=== PATIENT | female | born 1945 | race Caucasian/White ===

== ENCOUNTER → 2016-09-22 | Outpatient (CLI) | payer MEDICARE ==
--- NOTE | 2016-09-22 16:01 | BD ---
EXAMINATION TYPE: MG DEXA axial skeleton. DATE OF EXAM: 09/22/2016 COMPARISON: 09.18.2014 CLINICAL HISTORY: Z78.0 ASYMPTOMATIC MENOPAUSE Height: 63 Weight: 152 FRAX RISK QUESTIONS: Alcohol (3 or more units per day): NO Family History (Parent hip fracture): NO Glucocorticoids (More than 3mos): NO (Ex: prednisone, prednisolone, methylprednisolone, dexamethasone, and hydrocortisone). History of Fracture in Adulthood: NO Secondary Osteoporosis: NO 1. Type 1 Diabetes: NO 2. Hyperthyroidism: NO 3. Menopause before 45: NO 4. Malnutrition: NO 5. Chronic liver disease: NO Rheumatoid Arthritis: NO Current Tobacco Use: NO RISK FACTORS HISTORY OF: Family History of Osteoporosis: NO Active: YES Diet low in dairy products/other sources of calcium: NO Postmenopausal woman: 54 YRS OLD Take estrogen and/or progesterone medications: FOR 8 MO IN PAST, NONE NOW How lon MOS FOR HRT, 9 YRS FOR BCPS Hyperparathyroidism: NO Adrenal Insufficiency: NO MEDICATIONS: Osteoporosis Medications: ACTENOL 1 TIME MONTHLY, PRIOR WEEKLY, AND PROLIA IN PAST ALSO How Lon-7 YRS Additional Medications: BP MEDS, CALCIUM WITH VIT D, LIPITOR, Additional History: HYPERTENSION EXAM MEASUREMENTS: Bone mineral densitometry was performed using the [employer] System. Bone mineral density as measured about the Lumbar spine is: ----- L1-L4(G/cm2): 1.040 T Score Values are as follows: ----- L1: -2.1 ----- L2: -1.0 ----- L3: -1.5 ----- L4: -0.3 ----- L1-L4: -1.2 Bone mineral density has: Increased 10.0% since study of: 09.18.2014 Bone mineral density about the R hip (g/cm2): 0.970 Bone mineral density about the L hip (g/cm2): 0.927 T Score values are as follows: -----R Neck: -1.4 -----L Neck: -1.4 -----R Total: -0.3 -----L Total: -0.6 Bone mineral density has: Increased 0.5% since study of: 09.18.2014 FRAX %'S: THERE IS A 9.8% CHANCE OF A MAJOR OSTEOPOROTIC FX AND A 1.4% CHANCE OF A HIP FX.....ME OBABILITY IN 10 YRS/TIME IMPRESSION: Osteopenia (T Score between -2.5 and -1 as noted by T score values There is slightly increased risk of fracture and the patient may be considered for treatment. Re-Screen 2-5 years. Bone density is improved 10% within the lumbar spine compared to 09/18/2014. Bone density has improved 0.5% within the bilateral hips from 2015 NOTE: T-SCORE=SD OF THE YOUNG ADULT MEAN.
--- NOTE | 2016-09-25 12:59 | MM ---
Reason for exam: screening (asymptomatic). Last mammogram was performed 1 year ago. History: Patient is postmenopausal. Benign cyst aspiration of the right breast. Took hormonal contraceptives for 9 years. Took estrogen for 8 months. Took progesterone for 8 months. Physical Findings: A clinical breast exam by your physician is recommended on an annual basis and results should be correlated with mammographic findings. MG 3D Screening Mammo W/Cad Bilateral CC and MLO view(s) were taken. Prior study comparison: September 22, 2015, bilateral MG 3d screening mammo w/cad. September 21, 2014, left breast MG work up mamm w CAD LT. The breast tissue is heterogeneously dense. This may lower the sensitivity of mammography. Finding: There are typically benign round, diffuse/scattered and grouped calcifications in both breasts. There is a chronic nodularity in the right breast outer aspect unchanged from 2014. There is no dominant lesion. ASSESSMENT: Benign, BI-RAD 2 RECOMMENDATION: Routine screening mammogram of both breasts in 1 year.
== END | disposition home or self-care (01) ==
LOC: RADMAMWWP 08:13
PROVIDERS: ATTEND Family Medicine
DX: Z12.31 Encounter for screening mammogram for malignant neoplasm of breast (principal); M85.88 Other specified disorders of bone density and structure, other site; Z78.0 Asymptomatic menopausal state
CPT/HCPCS: 77080; 77063; G0202

== ENCOUNTER → 2017-10-08 | Outpatient (CLI) | payer MEDICARE ==
--- NOTE | 2017-10-10 13:43 | MM ---
Reason for exam: screening (asymptomatic). Last mammogram was performed 1 year and 1 month ago. History: Patient is postmenopausal. Benign cyst aspiration of the right breast. Took hormonal contraceptives for 9 years. Took estrogen for 8 months. Took progesterone for 8 months. Physical Findings: A clinical breast exam by your physician is recommended on an annual basis and results should be correlated with mammographic findings. MG 3D Screening Mammo W/Cad Bilateral CC and MLO view(s) were taken. Prior study comparison: September 22, 2016, bilateral MG 3d screening mammo w/cad. September 22, 2015, bilateral MG 3d screening mammo w/cad. September 18, 2014, bilateral MG screening mammo w CAD. September 11, 2013, bilateral MG screening mammo w CAD. The breast tissue is heterogeneously dense. This may lower the sensitivity of mammography. Nodular asymmetry persists on 3D images anterior left MLO view just below the retroareolar plane. ASSESSMENT: Incomplete: need additional imaging evaluation, BI-RAD 0 RECOMMENDATION: Special view mammogram of the left breast. If lesion persists on supplemental views, image directed ultrasound is recommended. [facility] will attempt to contact patient to return for supplemental views and ultrasound if indicated.
== END | disposition home or self-care (01) ==
LOC: RADMAMWWP 10:20
PROVIDERS: ATTEND Family Medicine
DX: Z12.31 Encounter for screening mammogram for malignant neoplasm of breast (principal)
CPT/HCPCS: 77063; 77067

== ENCOUNTER → 2017-10-29 | Outpatient (CLI) | payer MEDICARE ==
--- NOTE | 2017-10-31 11:29 | MM ---
Reason for exam: additional evaluation requested from abnormal screening. Last mammogram was performed 1 month ago. History: Patient is postmenopausal. Benign cyst aspiration of the right breast. Took hormonal contraceptives for 9 years. Took estrogen for 8 months. Took progesterone for 8 months. Physical Findings: Nurse did not find any significant physical abnormalities on exam. MG 3D Work Up W/Cad LT Spot compression MLO, LM, and CCRM view(s) were taken of the left breast. Prior study comparison: October 08, 2017, bilateral MG 3d screening mammo w/cad. September 22, 2016, bilateral MG 3d screening mammo w/cad. Density persists. Ultrasound recommended. These results were verbally communicated with the patient and result sheet given to the patient on 10/29/17. ASSESSMENT: Incomplete: need additional imaging evaluation, BI-RAD 0 RECOMMENDATION: Ultrasound of the left breast.
--- NOTE | 2017-10-31 11:30 | USB ---
Reason for exam: additional evaluation requested from abnormal screening. History: Patient is postmenopausal. Benign cyst aspiration of the right breast. Took hormonal contraceptives for 9 years. Took estrogen for 8 months. Took progesterone for 8 months. US Breast Workup Limited LT Left limited breast ultrasound including focal area of concern, retroareolar and axilla demonstrates a 0.3 x 0.3 x 0.4cm oval, cystic lesion at 12 o'clock. These results were verbally communicated with the patient and result sheet given to the patient on 10/29/17. ASSESSMENT: Probably benign, BI-RAD 3 RECOMMENDATION: Follow-up diagnostic mammogram of the left breast in 6 months.
== END | disposition home or self-care (01) ==
LOC: RADMAMWWP 11:55
PROVIDERS: ATTEND Family Medicine
DX: R92.8 Other abnormal and inconclusive findings on diagnostic imaging of breast (principal)
CPT/HCPCS: 77065; 76642; G0279; 77061

== ENCOUNTER → 2017-11-23 | Outpatient (CLI) | payer MEDICARE ==
[2017-11-23 11:00] VITALS: BP 137/77; PULSE 70; RESP 14; TEMP 98; BMI 26.2
--- NOTE | 2017-11-23 11:11 | P.GSHP ---
History of Present Illness H&P Date: 11/23/17 The patient is a 72-year-old white female who is status post bilateral mammogram 8618. The breast tissue was known to be heterogeneously dense. In a nodular asymmetry was present in the left breast in the mL of old view just below the retroareolar plane. Additional views of the left breast was recommended. Back compression views were obtained and the density persisted. An ultrasound was then obtained and the ultrasound revealed a 0.3 x 0.4 cm cystic lesion at 12:00. This was felt to be probably benign and a follow-up diagnostic mammogram of the left breast in 6 months time was recommended. The patient does not feel anything in her breast. No nipple discharge or changes. The patient denies any infection or trauma to the breast. Family History: 1. : diagnosed with stage 4 pancreatic cancer Hormonal history: menarche: 14 : 2, first at 23, breast fed: ne menopause: 53 BCP: 30 years hormones: estrogen for less than 1 year Past Surgical History: 1. parathyroid resection about 10 years ago 2. tonsil and adenoids 3. bladder sling Past Medical History: 1. none Social History: smoke: none alcohol: none drugs: none - Constitutional Constitutional: Denies chills, Denies fever - EENT Comment: parathyroid resection Eyes: denies blurred vision, denies pain Ears: deny: decreased hearing, tinnitus Ears, nose, mouth and throat: Denies headache, Denies sore throat - Breasts Breasts: bilateral: as per HPI - Cardiovascular Cardiovascular: Reports high blood pressure, Denies chest pain, Denies shortness of breath - Respiratory Respiratory: Denies cough, Denies 7 - Gastrointestinal Gastrointestinal: Denies abdominal pain, Denies diarrhea, Denies nausea, Denies vomiting - Genitourinary (Female) Genitourinary: Reports kidney stones - Menstruation Menstruation: Reports postmenopausal - Musculoskeletal Musculoskeletal: Denies myalgias - Integumentary Integumentary: Denies pruritus, Denies rash - Neurological Neurological: Denies numbness, Denies weakness - Psychiatric Psychiatric: Denies anxiety, Denies depression - Endocrine Endocrine: Denies fatigue, Denies weight change - Hematologic/Lymphatic Comment: none - Allergic/Immunologic Comment: none Medications and Allergies Home Medications Medication Instructions Recorded Confirmed Type Atorvastatin [Lipitor] 10 mg PO DAILY 11/23/17 11/23/17 History Levothyroxine Sodium [Synthroid] 50 mcg PO DAILY 11/23/17 11/23/17 History Losartan/Hydrochlorothiazide 1 each PO QAM 11/23/17 11/23/17 History [Losartan-Hctz 50-12.5 mg Tab] Risedronate Sodium [Actonel] 35 mg PO QMONTH 11/23/17 11/23/17 History Allergies Allergy/AdvReac Type Severity Reaction Status Date / Time No Known Allergies Allergy Unverified 11/23/17 10:47 Surgical - Exam - General well developed, well nourished, no distress - Eyes no PERRL, normal ocular movement, no pale, no icteric, no deviation, no loss of movement, no other - ENT no hearing loss, no congestion - Neck well healed scar from prior surgery no masses, trachea midline - Respiratory normal respiratory effort, clear to auscultation - Cardiovascular Rhythm: regular Heart Sounds: normal: S1, S2 - Abdomen Abdomen: soft - Neurologic no disoriented, no combative - Musculoskeletal normal gait, normal posture - Psychiatric oriented to time, oriented to person, oriented to place, speech is normal, memory intact breast exam: right breast: Multi-positional exam no dominant masses or nodules of concern Right axilla: No adenopathy of concern Left breast: Multi-positional exam no dominant masses or nodules of concern is special attention was paid to the area at 12:00 noted on ultrasound and no discrete masses or lesions of concern were identified Left axilla: No adenopathy of concern Results Reports of mammogram and ultrasound reviewed Assessment and Plan Assessment: Impression: 1. Mammographic and ultrasound abnormality left breast probably benign 2. Fibrocystic breast changes on examination 3. Hypothyroidism 4. Prior parathyroid resection 5. Hypertension Plan: 1. Repeat left breast mammogram in 6 months time 2. Medical management of medical 3. Follow-up Dr. Wahl in 6 months, if any stones would like to see the patient sooner CC: Dr. Pablito Holt, Pattie Yanes nurse practitioner
== END | disposition home or self-care (01) ==
LOC: WWCWWP 09:57
PROVIDERS: ATTEND Surgery
DX: Z53.9 Procedure and treatment not carried out, unspecified reason (principal)

== ENCOUNTER → 2018-05-29 | Outpatient (CLI) | payer MEDICARE ==
--- NOTE | 2018-05-29 09:12 | MM ---
Reason for exam: follow-up at short interval from prior study. Last mammogram was performed 7 months ago. History: Patient is postmenopausal. Benign cyst aspiration of the right breast. Took hormonal contraceptives for 9 years. Took estrogen for 8 months. Took progesterone for 8 months. Physical Findings: Nurse did not find any significant physical abnormalities on exam. MG 3D Diag Mammo W/Cad LT CC, MLO, and ML view(s) were taken of the left breast. Prior study comparison: October 29, 2017, left breast MG 3d work up w/cad LT. October 08, 2017, bilateral MG 3d screening mammo w/cad. The breast tissue is heterogeneously dense. This may lower the sensitivity of mammography. The previous central inferior nodularity is no longer seen. These results were verbally communicated with the patient and result sheet given to the patient on 05/29/18. ASSESSMENT: Negative, BI-RAD 1 RECOMMENDATION: Return to routine screening mammogram schedule for both breasts. Back on schedule.
== END | disposition home or self-care (01) ==
LOC: RADMAMWWP 08:19
PROVIDERS: ATTEND Surgery
DX: R92.8 Other abnormal and inconclusive findings on diagnostic imaging of breast (principal)
CPT/HCPCS: 77065; G0279; 77061

== ENCOUNTER → 2018-10-11 | Outpatient (CLI) | payer MEDICARE ==
--- NOTE | 2018-10-11 11:46 | BD ---
EXAMINATION TYPE: Axial Bone Density DATE OF EXAM: 10/11/2018 COMPARISON: 09/22/2016 CLINICAL HISTORY: Z 78.0 Height: 63 IN Weight: 149 LBS FRAX RISK QUESTIONS: Family History (Parent hip fracture): YES MOTHER HISTORY OF: Active: YES Postmenopausal woman: AGE 51 MEDICATIONS: Thyroid Medications: YES Which medication: Synthroid How Lon YEARS Osteoporosis Medications: YES Which medication: Actonel How Lon YEARS Additional Medications: CALCIUM, VIT D, ACTONEL,CHOLESTEROL MED, BLOOD PRESSURE MED EXAM MEASUREMENTS: Bone mineral densitometry was performed using the [employer] System. Bone mineral density as measured about the Lumbar spine is: ----- L1-L4(G/cm2): 1.069 T Score Values are as follows: ----- L2: -0.9 ----- L3: -1.1 ----- L4: -0.2 ----- L1-L4: -0.9 Bone mineral density has: Increased 2.2% since study of: 09/22/2016 Bone mineral density about the R hip (g/cm2): 0.799 Bone mineral density about the L hip (g/cm2): 0.809 T Score values are as follows: -----R Neck: -1.7 -----L Neck: -1.6 -----R Total: -0.4 -----L Total: -0.7 Bone mineral density has: Decreased -1.2% since study of: 09/22/2016 IMPRESSION: Osteopenia (T Score between -2.5 and -1). There is slightly increased risk of fracture and the patient may be considered for treatment. Re-Screen 2-5 years. NOTE: T-SCORE=SD OF THE YOUNG ADULT MEAN.
--- NOTE | 2018-10-14 10:10 | MM ---
Reason for exam: screening (asymptomatic). Last mammogram was performed 4 months ago. History: Patient is postmenopausal. Family history of breast cancer in sister at age 70. Benign cyst aspiration of the right breast. Took hormonal contraceptives for 9 years. Took estrogen for 8 months. Took progesterone for 8 months. Physical Findings: A clinical breast exam by your physician is recommended on an annual basis and results should be correlated with mammographic findings. MG 3D Screening Mammo W/Cad Bilateral CC and MLO view(s) were taken. Prior study comparison: May 29, 2018, left breast MG 3d diag mammo w/cad LT. October 29, 2017, left breast MG 3d work up w/cad LT. The breast tissue is heterogeneously dense. This may lower the sensitivity of mammography. Stable benign calcifications. There is no discrete abnormality. No significant changes when compared with prior studies. ASSESSMENT: Benign, BI-RAD 2 RECOMMENDATION: Routine screening mammogram of both breasts in 1 year.
== END | disposition home or self-care (01) ==
LOC: RADMAMWWP 09:36
PROVIDERS: ATTEND Family Medicine
DX: Z12.31 Encounter for screening mammogram for malignant neoplasm of breast (principal); M85.851 Other specified disorders of bone density and structure, right thigh; M85.852 Other specified disorders of bone density and structure, left thigh; M85.88 Other specified disorders of bone density and structure, other site; Z78.0 Asymptomatic menopausal state
CPT/HCPCS: 77063; 77067; 77080

== ENCOUNTER → 2019-11-14 | Outpatient (CLI) | payer MEDICARE ==
--- NOTE | 2019-11-17 10:02 | MM ---
Reason for exam: screening (asymptomatic). Last mammogram was performed 1 year and 1 month ago. History: Patient is postmenopausal. Family history of breast cancer in sister at age 70. Benign cyst aspiration of the right breast. Took hormonal contraceptives for 9 years. Took estrogen for 8 months. Took progesterone for 8 months. Physical Findings: A clinical breast exam by your physician is recommended on an annual basis and results should be correlated with mammographic findings. MG 3D Screening Mammo W/Cad Bilateral CC and MLO view(s) were taken. Prior study comparison: October 11, 2018, bilateral MG 3d screening mammo w/cad. May 29, 2018, left breast MG 3d diag mammo w/cad LT. The breast tissue is heterogeneously dense. This may lower the sensitivity of mammography. Stable benign calcifications. There is no discrete abnormality. No significant changes when compared with prior studies. ASSESSMENT: Benign, BI-RAD 2 RECOMMENDATION: Routine screening mammogram of both breasts in 1 year.
== END | disposition home or self-care (01) ==
LOC: RADMAMWWP 10:57
PROVIDERS: ATTEND Family Medicine
DX: Z12.31 Encounter for screening mammogram for malignant neoplasm of breast (principal)
CPT/HCPCS: 77063; 77067

== ENCOUNTER → 2020-06-28 | Outpatient (CLI) | payer MEDICARE ==
[~2020-06-28] MED LIST: BAMLANIVIMAB (EUA) 700 MG, ETESEVIMAB (EUA) 1,400 MG in SODIUM CHLORIDE 0.9% 50 ML IVPB ONE; SODIUM CHLORIDE 0.9% 50 ML IVPB ONE; SODIUM CHLORIDE 0.9% 500 ML 500 ML in EMPTY BAG 1 BAG IV PRN
[2020-06-28 12:09] VITALS: RESP 16
[2020-06-28 13:23] VITALS: BP 108/64; PULSE 87; TEMP 99.6
== END | disposition home or self-care (01) ==
LOC: PROCWHC3 11:46
PROVIDERS: ATTEND Family Medicine
DX: U07.1 COVID-19 (principal)
CPT/HCPCS: Q0245; M0245

== ENCOUNTER → 2020-11-17 | Outpatient (CLI) | payer MEDICARE ==
--- NOTE | 2020-11-18 12:02 | MM ---
Reason for exam: screening (asymptomatic). Last mammogram was performed 1 year ago. History: Patient is postmenopausal. Family history of breast cancer in sister at age 70. Benign cyst aspiration of the right breast. Took hormonal contraceptives for 9 years. Took estrogen for 8 months. Took progesterone for 8 months. Physical Findings: A clinical breast exam by your physician is recommended on an annual basis and results should be correlated with mammographic findings. MG 3D Screening Mammo W/Cad Bilateral CC and MLO view(s) were taken. Prior study comparison: November 14, 2019, bilateral MG 3d screening mammo w/cad. October 11, 2018, bilateral MG 3d screening mammo w/cad. October 08, 2017, bilateral MG 3d screening mammo w/cad. The breast tissue is heterogeneously dense. This may lower the sensitivity of mammography. There are benign appearing round calcifications bilaterally. There is chronic nodularity in the upper right breast. There is no discrete abnormality. ASSESSMENT: Benign, BI-RAD 2 RECOMMENDATION: Routine screening mammogram of both breasts in 1 year.
== END | disposition home or self-care (01) ==
LOC: RADMAMWWP 10:59
PROVIDERS: ATTEND Family Medicine
DX: Z12.31 Encounter for screening mammogram for malignant neoplasm of breast (principal); Z78.0 Asymptomatic menopausal state; Z80.3 Family history of malignant neoplasm of breast; Z79.3 Long term (current) use of hormonal contraceptives
CPT/HCPCS: 77063; 77067

== ENCOUNTER → 2021-02-09 | Outpatient (CLI) | payer MEDICARE ==
--- NOTE | 2021-02-09 16:21 | BD ---
EXAMINATION TYPE: Axial Bone Density DATE OF EXAM: 02/09/2021 COMPARISON: NONE CLINICAL HISTORY: Height: 63.5 Weight: 154.1 FRAX RISK QUESTIONS: Alcohol (3 or more units per day): no Family History (Parent hip fracture): yes Glucocorticoids (More than 3mos): no (Ex: prednisone, prednisolone, methylprednisolone, dexamethasone, and hydrocortisone). History of Fracture in Adulthood: no Secondary Osteoporosis: 1. Type 1 Diabetes: no 2. Hyperthyroidism: no 3. Menopause before 45: yes 4. Malnutrition: no 5. Chronic liver disease: no Rheumatoid Arthritis: no Current Tobacco Use: no RISK FACTORS HISTORY OF: Surgery to Spine/Hip(right/left)/Wrist (right/left): no Family History of Osteoporosis: yes Active: yes Diet low in dairy products/other sources of calcium: no Postmenopausal woman: yes Lost more than 2 inches in height since high school: no MEDICATIONS: lipitor, atorvastatin, losartan Thyroid Medications: synthroid How Long: unsure Additional History: EXAM MEASUREMENTS: Bone mineral densitometry was performed using the [employer] System. Bone mineral density as measured about the Lumbar spine is: ----- L1-L4(G/cm2): 1.153 T Score Values are as follows: ----- L2: -0.9 ----- L3: -0.2 ----- L4: 0.8 ----- L1-L4: -0.2 Bone mineral density has: increased 6.6 % since study of: 10.11.2018 Bone mineral density about the R hip (g/cm2): 0.934 Bone mineral density about the L hip (g/cm2): 0.798 T Score values are as follows: -----R Neck: -0.7 -----L Neck: -1.7 -----R Total: -0.2 -----L Total: -0.7 Bone mineral density has: increased 1.4 % since study of: 10.11.2018 IMPRESSION: Normal (Values between +1 and -1 indicate normal bone mass). Consider repeating this study in 5 year s or sooner if there is some new clinical indication. NOTE: T-SCORE=SD OF THE YOUNG ADULT MEAN.
== END | disposition home or self-care (01) ==
LOC: RADBDWWP 09:25
PROVIDERS: ATTEND Family Medicine
DX: M85.852 Other specified disorders of bone density and structure, left thigh (principal); Z78.0 Asymptomatic menopausal state
CPT/HCPCS: 77080

== ENCOUNTER → 2021-11-18 | Outpatient (CLI) | payer MEDICARE ==
--- NOTE | 2021-11-21 17:02 | MM ---
Reason for Exam: Screening (asymptomatic). Last screening mammogram was performed 12 month(s) ago. Patient History: Menarche at age 14. First Full-Term at age 23. Postmenopausal. Estrogen for 8 months. Progesterone for 8 months. Patient used Hormonal Contraceptives for 9 years. Benign Cyst Aspiration on the right side. Sister had breast cancer, age 70. Risk Values: Caryn 5 year model risk: 3.4%. NCI Lifetime model risk: 7.2%. Prior Study Comparison: 10/11/2018 Bilateral Screening Mammogram, [facility]. 11/14/2019 Bilateral Screening Mammogram, [facility]. 11/17/2020 Bilateral Screening Mammogram, [facility]. Tissue Density: The breast tissue is heterogeneously dense. This may lower the sensitivity of mammography. Findings: Analyzed By CAD. Chronic slightly lobular densities in the lower outer aspect right breast. No suspicious groups of microcalcifications, spiculated or lobular masses, architectural distortion or other secondary signs of malignancy are mammographically apparent. Overall Assessment: Benign, BI-RAD 2 Management: Screening Mammogram of both breasts in 1 year. A negative mammogram report should not preclude additional follow up of suspicious palpable abnormalities. Patient should continue monthly self breast exam. A clinical breast exam by your physician is recommended on an annual basis and results should be correlated with mammographic findings. Electronically signed and approved by: Koko Daily D.O. Radiologis
== END | disposition home or self-care (01) ==
LOC: RADMAMWWP 09:17
PROVIDERS: ATTEND Family Medicine
DX: Z12.31 Encounter for screening mammogram for malignant neoplasm of breast (principal); Z78.0 Asymptomatic menopausal state; Z80.3 Family history of malignant neoplasm of breast
CPT/HCPCS: 77063; 77067

== ENCOUNTER → 2022-11-21 | Outpatient (CLI) | payer MEDICARE ==
--- NOTE | 2022-11-22 18:27 | MM ---
Reason for Exam: Screening (asymptomatic). Last screening mammogram was performed 12 month(s) ago. Patient History: Menarche at age 14. First Full-Term at age 23. Postmenopausal. Estrogen for 8 months. Progesterone for 8 months. Patient used Hormonal Contraceptives for 9 years. Benign Cyst Aspiration on the right side. Sister had breast cancer, age 70. Risk Values: Caryn 5 year model risk: 3.4%. NCI Lifetime model risk: 6.8%. Prior Study Comparison: 11/14/2019 Bilateral Screening Mammogram, [facility]. 11/17/2020 Bilateral Screening Mammogram, [facility]. 11/18/2021 Bilateral MG 3D screening mammo w/cad, [facility]. Tissue Density: The breast tissue is heterogeneously dense. This may lower the sensitivity of mammography. Findings: Analyzed By CAD. Pattern appears symmetrical and stable. No significant interval change is evident. No suspicious groups of microcalcifications, spiculated or lobular masses, architectural distortion or other secondary signs of malignancy are mammographically apparent. Overall Assessment: Benign, BI-RAD 2 Management: Screening Mammogram of both breasts in 1 year. A negative mammogram report should not preclude additional follow up of suspicious palpable abnormalities. Patient should continue monthly self breast exam. A clinical breast exam by your physician is recommended on an annual basis and results should be correlated with mammographic findings. Electronically signed and approved by: Koko Daily D.O. Radiologis
== END | disposition home or self-care (01) ==
LOC: RADMAMWWP 08:32
PROVIDERS: ATTEND Family Medicine
DX: Z12.31 Encounter for screening mammogram for malignant neoplasm of breast (principal); Z78.0 Asymptomatic menopausal state; Z80.3 Family history of malignant neoplasm of breast
CPT/HCPCS: 77063; 77067

== ENCOUNTER → 2023-11-28 | Outpatient (CLI) | payer MEDICARE ==
--- NOTE | 2023-11-30 19:12 | BD ---
EXAMINATION TYPE: Axial Bone Density DATE OF EXAM: 11/28/2023 CLINICAL HISTORY: 78 years old Female. ICD-10 CODE: Z78.0 ASYMPTOMATIC MENOPAUSA Height: 63 in Weight: 147 lbs FRAX RISK QUESTIONS: Family History (Parent hip fracture): yes mother Secondary Osteoporosis: 5. Chronic liver disease: pt had hepatitis age 15 RISK FACTORS MEDICATIONS: Thyroid Medications: yes Which medication: Synthroid How Lon+ years Osteoporosis Medications: yes Which medication: Actonel How Lon+ years EXAM MEASUREMENTS: Bone mineral densitometry was performed using the [employer] System. Bone mineral density as measured about the Lumbar spine is: ----- L1-L4(G/cm2): 1.208 T Score Values are as follows: ----- L1: -0.8 ----- L2: -0.5 ----- L3: 0.2 ----- L4: 2.2 ----- L1-L4: 0.2 Z Score Values are as follows: ----- L1: 1.0 ----- L2: 1.2 ----- L3: 1.9 ----- L4: 3.9 ----- L1-L4: 2.0 Bone mineral density has: Increased 4.8% since study of: 02/09/2021 Bone mineral density about the R hip (g/cm2): 1.006 Bone mineral density about the L hip (g/cm2): 0.932 T Score values are as follows: -----R Neck: -2.1 -----L Neck: 0.3 -----R Total: 0.0 -----L Total: -0.6 Z Score values are as follows: -----R Neck: 0.3 -----L Neck: 0.3 -----R Total: 1.8 -----L Total: 1.2 Bone mineral density has: Increased 2.0% since study of: 02/09/2021 FRAX%s: The graph provided illustrates a 20.5% chance for a major osteoporotic fx and a 10.6% chance for the hips probability for fx in 10 years time. IMPRESSION: Osteopenia (T Score between -2.5 and -1). There is slightly increased risk of fracture and the patient may be considered for treatment. Re-Screen 2-5 years. NOTE: T-SCORE=SD OF THE YOUNG ADULT MEAN. [facility], , 11/30/2023 7:10 PM
--- NOTE | 2023-12-02 09:40 | MM ---
Reason for Exam: Screening (asymptomatic). Last screening mammogram was performed 12 month(s) ago. Patient History: Menarche at age 14. First Full-Term at age 23. Postmenopausal. Estrogen for 8 months. Progesterone for 8 months. Patient used Hormonal Contraceptives for 9 years. Benign Cyst Aspiration on the right side. Sister had breast cancer, age 70. Risk Values: Caryn 5 year model risk: 3.3%. NCI Lifetime model risk: 6.3%. Prior Study Comparison: 10/08/2017 Bilateral Screening Mammogram, [facility]. 10/29/2017 Left Diagnostic Mammogram, [facility]. 05/29/2018 Left Diagnostic Mammogram, [facility]. 10/11/2018 Bilateral Screening Mammogram, [facility]. 11/14/2019 Bilateral Screening Mammogram, [facility]. 11/17/2020 Bilateral Screening Mammogram, [facility]. 11/18/2021 Bilateral MG 3D screening mammo w/cad, [facility]. 11/21/2022 Bilateral MG 3D screening mammo w/cad, [facility]. Tissue Density: The breasts are heterogeneously dense, which may obscure small masses. Findings: Analyzed By CAD. The pattern is symmetrical. Pattern appears stable. Benign calcification is present bilaterally. Skin lesions or axillary region. No suspicious groups of microcalcifications, spiculated or lobular masses, architectural distortion or other secondary signs of malignancy are mammographically apparent. Overall Assessment: Benign, BI-RAD 2 Management: Screening Mammogram of both breasts in 1 year. A negative mammogram report should not preclude additional follow up of suspicious palpable abnormalities. Patient should continue monthly self breast exam. A clinical breast exam by your physician is recommended on an annual basis and results should be correlated with mammographic findings. Note on Caryn scores and lifetime risk: 1. A Caryn score greater than 3% is considered moderate risk. If this is the case, consider specialist referral to assess eligibility for a risk reducing agent. 2. If overall lifetime risk for the development of breast cancer is 20% or higher, the patient may qualify for future screening with alternating mammogram and breast MRI. [facility], , 12/02/2023 9:37 AM. Electronically signed and approved by: Koko Daily D.O. [employer]iolog[employer]
== END | disposition home or self-care (01) ==
LOC: RADMAMWWP 08:54
PROVIDERS: ATTEND Family Medicine
CPT/HCPCS: 77063; 77067; 77080